=== PATIENT | male | born 1980 | race Two or more races ===

== ENCOUNTER 2024-10-12 20:40 | Emergency (ER) | payer MEDICAID, SELFPAY ==
[2024-10-12 21:37] VITALS: BP 131/80; PULSE 109; RESP 18; TEMP 36.9; O2SAT 96; BMI 26.4
--- NOTE | 2024-10-12 21:51 | PD.EDRME ---
Rapid Medical Screening Exam [facility] Arrival date/time: 10/12/24 20:40 44M with history of drug use, SBO, and kidney stones presents to ED with 2 days of epigastric pain and some bloody N/V. Patient states this doesn't feel like a kidney stone or an SBO. Chief Complaint: Abdominal Pain Vital signs: Vital Signs Temperature 98.5 F 10/12/24 21:37 Pulse Rate 109 H 10/12/24 21:37 Respiratory Rate 18 10/12/24 21:37 Blood Pressure 131/80 H 10/12/24 21:37 Pulse Oximetry (%) 96 10/12/24 21:37 Oxygen Delivery Method Room Air 10/12/24 21:37
[2024-10-12] MEDS: ONDANSETRON ODT 4 MG TABRAP PO (21:55)
[2024-10-12 22:16] LABS: Basophils % (Auto) 0 % (0-2.5); Eosinophils # (Auto) 0.1 Thou/mm3 (0.0-0.5); Eosinophils % (Auto) 1 % (0-10); Hematocrit 50.6 % (41.0-53.0); Hemoglobin 17.3 g/dL (13.5-16.0); Immature Granulocytes % (Auto) 0 % (0-0); Immature Granulocytes Auto 0.04 Thou/mm3 (0.00-0.00); Lymphocytes # (Auto) 1.2 Thou/mm3 (1.0-4.8); Lymphocytes % (Auto) 7 % (10-50); Mean Corpuscular HGB Conc 34.2 g/dl (31.0-37.0); Mean Corpuscular Hemoglobin 30.8 pg (25.0-35.0); Mean Corpuscular Volume 90 fL (80-100); Monocytes # (Auto) 1.6 Thou/mm3 (0.0-0.8); Monocytes % (Auto) 10 % (0-12); Neutrophils # (Auto) 13.2 Thou/mm3 (1.8-7.7); Neutrophils % (Auto) 82 % (37-80); Nucleated Red Blood Cell % 0 /100 WBC (0); Platelet Count 252 Thou/mm3 (140-440); RDW Standard Deviation 44.4 fL (35.1-43.9); Red Blood Count 5.62 Miln/mm3 (4.50-5.90); White Blood Count 16.2 Thou/mm3 (3.8-10.6)
[2024-10-12 22:35] LABS: Alanine Aminotransferase 20 U/L (10-49); Albumin, Serum 5.3 gm/dL (3.5-5.0); Albumin/Globulin Ratio 1.5 (1.2-2.2); Alcohol, Blood Medical < 3.0 mg/dL (0-10.0); Alkaline Phosphatase 72 U/L (46-116); Anion Gap 7 (7-16); Aspartate Amino Transferase 21 U/L (0-34); BUN/Creatinine Ratio 18 Ratio (12-20); Bilirubin,Total 0.9 mg/dL (0.3-1.2); Blood Urea Nitrogen 25 mg/dL (9-23); Calcium 10.9 mg/dL (8.3-10.6); Calcium (Corrected) 10.9 mg/dL (8.5-10.1); Carbon Dioxide 36.8 mMol/L (20.0-31.0); Chloride 98 mMol/L (98-107); Creatinine (Component) 1.4 mg/dL (0.6-1.3); Estimated Creatinine Clearance 82.7 mL/min (>60); Globulin 3.6 gm/dL (2.3-3.5); Glucose 135 mg/dL (74-106); Lipase 79 U/L (12-53); Osmolality,Calculated 289 (275-295); Potassium 3.4 mMol/L (3.4-5.1); Sodium 142 mMol/L (136-145); Total Protein 8.9 gm/dL (5.7-8.2); eGFR > 60 See Note
[2024-10-13 00:21] LABS: Collection Type, Urine Clean Catch
[2024-10-13 00:34] LABS: Bilirubin,Urine 1+ (Negative); Blood,Urine Negative (Negative); Clarity,Urine Clear (Clear/Hazy); Color,Urine Drk-Yellow (Lt Yel-Yel); Glucose, Urine Negative (Negative); Ketones,Urine 2+ (Negative); Leukocyte Esterase,Urine Negative (Negative); Nitrite,Urine Negative (Negative); Protein,Urine 2+ (Neg - Trace); RBC,Urine 3 /hpf (0-3); Squamous Epithelial Cell,Urine 1 /hpf (0-5); WBC,Urine 9 /hpf (0-5)
[2024-10-13 00:47] LABS: Amphetamine/Methamp Scrn,U Positive (Negative); Barbiturate Screen,Urine Negative (Negative); Benzodiazepines Screen,Urine Negative (Negative); Benzoylecgonine Screen, Ur Negative (Negative); Fentanyl Screen,Urine Negative (Negative); Opiate Screen,Urine Negative (Negative); THC Screen,Urine Negative (Negative)
[2024-10-13 02:22] VITALS: BP 114/82; PULSE 122; RESP 18; TEMP 37.2; O2SAT 97
--- NOTE | 2024-10-13 03:00 | EDNOTE_ITS ---
ED Abdominal Pain RME/HPI General Chief Complaint: Abdominal Pain Stated complaint: Abd Pain N/V Time seen by provider: 10/13/24 02:59 Arrival date/time: 10/12/24 20:40 RME / HPI RME / HPI narrative: 10/12/24 20:40 44M with history of drug use, SBO, and kidney stones presents to ED with 2 days of epigastric pain and some bloody N/V. Patient states this doesn't feel like a kidney stone or an SBO. ------ Dr. Sanchez's Main ED Evaluation: 44yo presenting to the emergency department for pain in the stomach after he ate some fruit while he was walking. He states he ate it yesterday but the pain started today. The pain started 1 hour after he ate the food. He ate approximately 14 of the pieces of fruit. The pain has been constant but now now down to a 1 out of 10 and mainly complaining of gas- like pain at this time. Nausea without vomiting. No diarrhea or fever. Patient states he had food like this in the past with no pain. Related Data Previous Rx's ?Medication ?Instructions ?Recorded hydrocodone 5 mg-acetaminophen 325 1 tab PO BID PRN pain #10 tabs 06/03/23 mg tablet naproxen 500 mg tablet 500 mg PO BID PRN pain #30 tabs 06/03/23 ondansetron 4 mg disintegrating 4 mg PO Q8H PRN nausea and 06/03/23 tablet vomiting #20 tabs tamsulosin 0.4 mg capsule (Flomax) 0.4 mg PO QDAY #30 caps 06/03/23 ondansetron 4 mg disintegrating 4 mg PO Q8H PRN nausea and 10/13/24 tablet vomiting #14 tabs Allergies Allergy/AdvReac Type Severity Reaction Status Date / Time No Known Allergies Allergy Verified 06/14/24 19:38 Review of Systems Review of Systems Systems Reviewed: All systems reviewed, normal except as documented Past Medical History Past Medical History CARDIAC: Negative Cardiac Disorders or Congestive Heart Failure RESPIRATORY: Positive Asthma; Negative Chronic Obstructive Pulmonary Disease (COPD) GENITOURINARY: Positive Kidney Stones; Negative Renal Disease ENDOCRINE: Negative Diabetes Mellitus Type 1 or Diabetes Mellitus Type 2 HEMATOLOGIC: Negative Blood Disorders or Sickle Cell Disease OTHER HISTORY: Negative Cancer Surgical History SURGICAL: Negative Cardiac Surgery, Abdominal Surgery or Joint Replacement Social History SMOKING STATUS: Former smoker ED Exam Narrative Physical exam: Appears disheveled but talking full sentences in no acute distress. General General appearance: Present alert; Absent appears intoxicated Eye Eye exam: Absent scleral icterus Neck Neck exam: Present normal inspection; Absent full ROM Respiratory Respiratory exam: Present normal lung sounds bilaterally; Absent respiratory distress or wheezes Abdominal Exam Abdominal exam: Present soft; Absent distention, tenderness, guarding or rebound Extremities Exam Extremities exam: Present full ROM and normal capillary refill Neurological Exam Neurological exam: Present alert, normal gait and other; Absent motor sensory deficit Psychiatric Psychiatric exam: Absent agitated or anxious Skin Skin exam: Present warm and dry Course Course Course Narrative: Tolerating p.o. without nausea or vomiting Quality Measures none Orders Category Date Time Status Alcohol, Blood Medical Stat Lab 10/12/24 22:08 Completed CBC Stat Lab 10/12/24 22:08 Completed CMP [Comprehensive Metabolic Panel] Stat Lab 10/12/24 22:08 Completed Drug Screen,Urine Stat Lab 10/13/24 00:06 Completed Lipase Stat Lab 10/12/24 22:08 Completed UA [Urinalysis] Stat Lab 10/13/24 00:06 Completed Acetaminophen Tab [Tylenol Tab] Med 10/13/24 03:17 Discontinued 650 mg PO X1 ONE Ondansetron Odt [Zofran Odt] Med 10/12/24 21:50 Discontinued 4 mg PO X1 ONE Vital Signs Vital signs: Vital Signs Temperature 98.5 F 10/12/24 21:37 Pulse Rate 109 H 10/12/24 21:37 Respiratory Rate 18 10/12/24 21:37 Blood Pressure 131/80 H 10/12/24 21:37 Pulse Oximetry (%) 96 10/12/24 21:37 Oxygen Delivery Method Room Air 10/12/24 21:37 Pulse ox is 96% on room air, which is normal according to my interpretation. Abdominal Pain MDM MDM Narrative MDM Narrative:: Differential diagnosis includes drug use, gastritis, allergic reaction, gallbladder disease, nausea, dehydration, electrolyte abnormality. The patient otherwise in the emergency department has a white count of 16, but abdomen is soft nontender nondistended with no rebound. No Carrillo sign. Patient states the pain was specifically after he had some fruit He is tolerating p.o. here in the emergency department. Patient data External records reviewed:: [facility] previous records (Per chart review, patient was seen here on 06/07/24 for left flank pain.) Clinical information provided by:: patient Social determinants that could affect healthcare access:: substance use (history of amphetamine use) Patient has the following chronic illnesses:: kidney stones, asthma How is presenting disease/condition affected by chronic disease/condition?: uneffected by Evaluation data The following diagnostics were reviewed and interpreted by me:: lab results Lab and/or radiology exams considered but not ordered:: none Interpretation Summary: WBC count is elevated at 16.2, Creatinine is slightly elevated at 1.4, Lipase is slightly elevated at 79, UA is positive for UTI, UDS is positive for amphetamines, according to my interpretation. Medications / Prescriptions Medications or Prescriptions considered but not ordered:: none Medication administrations:: Medication Administration History Discontinued Medications Acetaminophen (Acetaminophen 325 Mg Tablet) 650 mg PO X1 ONE Stop: 10/13/24 03:18 Ondansetron HCl (Ondansetron Odt 4 Mg Tabrap) 4 mg PO X1 ONE; Protocol Stop: 10/12/24 21:51 Last Admin: 10/12/24 21:55 Dose: 4 mg Documented By: see above Consultations Consultation(s) initiated? (list below): No Diagnosis Differential diagnosis abdominal pain: other (drug use, gastritis, allergic reaction, gallbladder disease, nausea, dehydration, electrolyte abnormality) Most likely diagnosis given after review of the tests above:: see below Admission Indicated Admission indicated?: not indicated Admission Request Was there a request for admission?: No Disposition Plan Disposition Plan: Discharge Discharge Attestation Discharge Attestation: The patient and all family members were given an opportunity to ask questions and understood the discharge instructions. Discharge instructions specifically effects, indications for sooner follow up or return to the emergency department, and the expected course of current diagnosis. Patient condition: Stable Discharge Plan Plan Patient Disposition: HOME (Self Care) Patient condition on transfer: Stable Prescriptions/Referrals Prescriptions/Med Rec: New ondansetron 4 mg tablet,disintegrating 4 mg PO Q8H PRN (Reason: nausea and vomiting) Qty: 14 0RF No Action naproxen 500 mg tablet 500 mg PO BID PRN (Reason: pain) Qty: 30 0RF hydrocodone-acetaminophen 5-325 mg tablet 1 tab PO BID MDD 2 PRN (Reason: pain) Qty: 10 0RF ondansetron 4 mg tablet,disintegrating 4 mg PO Q8H PRN (Reason: nausea and vomiting) Qty: 20 0RF tamsulosin [Flomax] 0.4 mg capsule 0.4 mg PO QDAY Qty: 30 0RF Problem List Clinical Impression: Nausea Patient/Caregiver Discharge Instructions Diet Instructions: Please avoid eating fruit that has not been washed or you do not know where it came from. Please continue to hydrate with water or Pedialyte for the next 1 to 2 days. Education Materials: ED Abdominal Pain Unknown Cause ... Additional Instructions: If you are nauseous you can take the Zofran 2-3 times a day for the next 2 to 3 days. Return to the emergency department for any worsening symptoms, or any other concerns. Print Language: Slovenian Stand Alone Forms: [facility] Award Info., Patient Portal Info Letter
[2024-10-13] MEDS: ACETAMINOPHEN 325 MG TABLET 650 MG PO (03:23)
[2024-10-13 03:27] VITALS: BP 112/68; PULSE 68; RESP 19; TEMP 37.1; O2SAT 99
== END 2024-10-13 03:27 | disposition home or self-care (01) ==
LOC: SERX 10-13 03:35
PROVIDERS: Physician Assistant; Emergency Provider Emergency Medicine
DX: R11.0 Nausea (principal); N39.0 Urinary tract infection, site not specified
CPT/HCPCS: 36415; 80053; 80307; 80320; 81001; 83690; 85025; 99283; Q0162; A9270; G0480